=== PATIENT | male | born 1995 | race Caucasian/White ===

== ENCOUNTER 2024-10-04 13:09 | Emergency (ER) | payer OTHER, MEDICAID ==
[~2024-10-04] VITALS: Ht 170.2 cm; Wt 79.4 kg
[2024-10-04 13:17] VITALS: O2SAT 99
[2024-10-04] MEDS: ACETAMINOPHEN 325MG TABLET PO NR (15:36)
[2024-10-04 16:00] LABS: HEMATOCRIT 44.2 % (42.0-52.0); MEAN CORPUSCULAR HEMOGLOBIN 29.7 pg (28.0-32.0); MEAN CORPUSCULAR HGB CONC 33.9 g/dL (31.0-37.0); MEAN CORPUSCULAR VOLUME 87.6 fL (80.0-94.0); PLATELET 300 x1000/uL (130-400); RED BLOOD CELL COUNT 5.05 mill/uL (4.7-6.1); RED CELL DISTRIBUTION WIDTH 13.9 % (11.6-14.6); WHITE BLOOD COUNT 8.9 x1000/uL (4.5-11.0)
[2024-10-04 16:06] LABS: CHLORIDE 105 mEq/L (98-107); POTASSIUM 3.8 mEq/L (3.5-5.1); SODIUM 141 mEq/L (136-145)
[2024-10-04 16:07] LABS: CARBON DIOXIDE 29 mEq/L (21-32)
[2024-10-04 16:08] LABS: CALCIUM 10.2 mg/dL (8.7-10.4)
[2024-10-04 16:12] LABS: CREATININE 0.8 mg/dL (0.6-1.3); GLUCOSE 93 mg/dL (70-105)
[2024-10-04 16:13] LABS: UREA NITROGEN BLOOD 10 mg/dL (9-23)
[2024-10-04 16:14] LABS: ALANINE AMINOTRANSFERASE 66 IU/L (10-49); ASPARTATE AMINOTRANSFERASE 30 IU/L (<34)
[2024-10-04 16:15] LABS: BILIRUBIN TOTAL 0.3 mg/dL (0.1-1.0); PROTEIN TOTAL 7.7 g/dL (6.0-8.3)
[2024-10-04 16:17] LABS: INR 0.9; PROTHROMBIN TIME 10.6 sec (9.6-11.0)
[2024-10-04] MEDS: KETOROLAC 15MG/ML VIAL IV ONE (19:18)
[2024-10-04 19:26] VITALS: BP 127/82; PULSE 77; RESP 18; TEMP 37.05852; O2SAT 98
[2024-10-04] MEDS ORDERED: IOHEXOL-350 100 ML BOTTLE ONE (23:26)
== END 2024-10-04 19:50 | disposition home or self-care (01) ==
LOC: ER 13:09
DX: R10.9 Unspecified abdominal pain (principal); M25.551 Pain in right hip; V23.49XA Other motorcycle driver injured in collision with car, pick-up truck or van in traffic accident, initial encounter; Y93.89 Activity, other specified; Y92.89 Other specified places as the place of occurrence of the external cause; Y99.8 Other external cause status
CPT/HCPCS: 99291; 71260; 96374; 80053; 85027; 85610; 36415; 73552; 73560; 73590; 73600; 73620; 74177; Q9967; J1885

== ENCOUNTER 2025-04-29 21:26 | Emergency (ER) | payer MEDICAID, OTHER ==
[~2025-04-29] VITALS: Ht 160 cm; Wt 72.5 kg
[2025-04-29 22:17] VITALS: O2SAT 100
[2025-04-29 22:38] LABS: BASOPHILS % 0.5 % (0.0-2.0); EOSINOPHILS % 1.3 % (0.0-5.0); HEMATOCRIT. 43.8 % (42.0-52.0); HEMOGLOBIN. 15.1 g/dL (14.0-18.0); LYMPHOCYTES % 30.6 % (20.0-50.0); MEAN PLATELET VOLUME 7.8 fl (7.4-10.4); MONOCYTES % 10.5 % (2.0-8.0); NEUTROPHILS % 57.1 % (40.0-76.0); PLATELET 284 x1000/uL (130-400); RED BLOOD CELL COUNT 5.04 mill/uL (4.7-6.1); RED CELL DISTRIBUTION WIDTH 13.3 % (11.6-14.6)
[2025-04-29 22:39] LABS: CLARITY URINE CLEAR (CLEAR); COLOR URINE YELLOW (YELLOW); GLUCOSE URINE NEGATIVE (NEGATIVE); KETONES URINE TRACE (NEGATIVE); LEUKOCYTE ESTERASE URINE NEGATIVE (NEGATIVE); NITRITE URINE NEGATIVE (NEGATIVE); OCCULT BLOOD URINE NEGATIVE (NEGATIVE); PH URINE 6.5 (4.5-8.0); PROTEIN URINE NEGATIVE (NEGATIVE); SPECIFIC GRAVITY URINE 1.021 (1.005-1.030); UROBILINOGEN URINE 0.2 E.U./dL (0.2-1.0)
[2025-04-29 22:52] LABS: CREATININE 1.0 mg/dL (0.6-1.3); UREA NITROGEN BLOOD 8 mg/dL (9-23)
[2025-04-29 23:54] LABS: ASPARTATE AMINOTRANSFERASE 35 IU/L (<34); BILIRUBIN DIRECT 0.1 mg/dL (<=3.0); BILIRUBIN TOTAL 0.4 mg/dL (0.1-1.0); PROTEIN TOTAL 7.5 g/dL (6.0-8.3)
[2025-04-30] MEDS: FAMOTIDINE 20MG TABLET PO ONE (00:16)
[2025-04-30] MEDS: ONDANSETRON 4MG ODT PO ONE (00:16)
[2025-04-30] MEDS: MAGNESIUM/ALUMINUM HYDROXIDE/SIMETHICONE 30ML UDC PO ONE (00:17)
[2025-04-30] MEDS: KETOROLAC 30MG/ML VIAL IM ONE (00:17)
[2025-04-30] MEDS: DICYCLOMINE HCL 10MG CAPSULE PO ONE (00:17)
[2025-04-30] MEDS ORDERED: FAMO-135 MT (01:30)
[2025-04-30] MEDS ORDERED: MAG-55 MT (01:30)
[2025-04-30 02:13] VITALS: BP 125/77; PULSE 80; RESP 18; TEMP 36.7; O2SAT 100
== END 2025-04-30 02:27 | disposition home or self-care (01) ==
LOC: ER 21:26
DX: K29.00 Acute gastritis without bleeding (principal); Z79.899 Other long term (current) drug therapy
CPT/HCPCS: 99285; 80076; 80048; 81003; 83690; 85025; 36415; 76705; 96372; J1885; Q0162